=== PATIENT | female | born 1985 | race Caucasian/White ===

== ENCOUNTER 2017-11-14 09:54 | Emergency (ER) | payer MEDICAID ==
[~2017-11-14] VITALS: Ht 162.6 cm; Wt 90.4 kg
[2017-11-14 10:03] VITALS: BP 141/87
--- NOTE | 2017-11-14 10:15 | NUR ---
PT AMBULATES TO BED 7, REPORT GIVEN ZANE MATHEWS
--- NOTE | 2017-11-14 10:17 | NUR ---
PATIENT PRESENTS TO ED WITH COMPLAINTS OF DRY COUGH, SHARP HEAD PAINS, AND LEFT LOWER BACK PAIN. PATIENT REPORTS COUGH NAD HEAD PAIN STARTED RECENTLY; LEFT LOWER BACK PAIN STARTED AFTER THE OF HER SECOND CHILD. SHE STATES THAT THE PAIN MAKES IT DIFFICULT FOR HER TO GET FROM A SUPINE POSITION TO A SITTING POSITION. DENIES N/V/D; SKIN IS PINK/WARM/DRY; AAOX4 WITH EVEN AND STEADY GAIT; LUNGS CLEAR BL; HR EVEN AND REGULAR; PT DENIES ANY FEVER, CP, OR SOB; PATIENT STATES PAIN OF 7/10 AT THIS TIME; VSS; PATIENT POSITIONED FOR COMFORT; HOB ELEVATED; BEDRAILS UP X1; BED DOWN. ER MD MADE AWARE OF PT STATUS.
--- NOTE | 2017-11-14 10:30 | NUR ---
STREP A AND THROAT CULTURE OBTAINED. PATIENT TOLERATED PROCEDURE WELL.
[2017-11-14 10:57] VITALS: BP 141/87
--- NOTE | 2017-11-14 10:57 | NUR ---
Patient discharged with v/s stable. Written and verbal after care instructions given and explained. Patient alert, oriented and verbalized understanding of instructions. Ambulatory with steady gait. All questions addressed prior to discharge. ID band removed. Patient advised to follow up with PMD. Rx of MOTRIN, FLONASE, PROMETHAZINE given. Patient educated on indication of medication including possible reaction and side effects. Opportunity to ask questions provided and answered.
== END 2017-11-14 11:23 | disposition home or self-care (01) ==
LOC: MED 09:54
DX: J06.9 Acute upper respiratory infection, unspecified (principal); M62.838 Other muscle spasm
CPT/HCPCS: 87081; 99284

== ENCOUNTER 2018-03-23 05:40 | Emergency (ER) | payer MEDICAID ==
[~2018-03-23] VITALS: Ht 160 cm; Wt 85.3 kg
[2018-03-23 05:45] VITALS: BP 117/76
--- NOTE | 2018-03-23 05:45 | NUR ---
PT AMBULATED TO BED 7 WITH VSS.
--- NOTE | 2018-03-23 05:45 | NUR ---
PT PRESENTS TO ED WITH SOAR THROAT, PRODUCTIVE COUGH WITH GREEN SPUTUM THROUGHOUT DAY, GUERRERO, LEFT EAR ACHE, SINUS CONGESTION X2 DAYS. STATES 7/10 PAIN. BILAT UPPER LOBES EXPIRATORY WHEEZING. PT DENIES N/V/D, NO BODY ACHES. A&OX4. AFEBRILE. ER MD AWARE. POSITIONED IN BED FOR COMFORT. CONTINUE TO MONITOR.
[2018-03-23] MEDS ORDERED: KETOROLAC 30 MG/ML VIAL IM ONE (06:10)
[2018-03-23 06:31] VITALS: BP 117/76
--- NOTE | 2018-03-23 06:31 | NUR ---
Patient discharged with v/s stable. Written and verbal after care instructions given and explained. Patient alert, oriented and verbalized understanding of instructions. Ambulatory with steady gait. All questions addressed prior to discharge. ID band removed. Patient advised to follow up with PMD. Rx of Tylenol, Naprosyn, and Augmentin given. Patient educated on indication of medication including possible reaction and side effects. Opportunity to ask questions provided and answered.
== END 2018-03-23 06:31 | disposition home or self-care (01) ==
LOC: MED 05:40
DX: H66.92 Otitis media, unspecified, left ear (principal); J06.9 Acute upper respiratory infection, unspecified
CPT/HCPCS: 96372; 99283; J1885

== ENCOUNTER 2023-02-03 10:14 | Emergency (ER) | payer MEDICAID, OTHER ==
[~2023-02-03] VITALS: Ht 165.1 cm; Wt 90.7 kg
[2023-02-03 10:27] VITALS: BP 128/89; PULSE 68; RESP 18; TEMP 98.3; O2SAT 99
[2023-02-03 10:55] VITALS: BP 128/89; PULSE 68; RESP 18; TEMP 98.3
[2023-02-03 10:57] VITALS: O2SAT 99
[2023-02-03] MEDS ORDERED: IBUPROFEN 600 MG TAB PO ONE (11:05)
[2023-02-03 11:19] LABS: BASOPHILS % (AUTO) 0.1 % (0.0-2.0); EOSINOPHILS # (AUTO) 0.3 K/uL (0-0.4); EOSINOPHILS % (AUTO) 3.4 % (0.0-4.0); HEMATOCRIT 31.9 % (36-48); HEMOGLOBIN 10.2 g/dL (12.0-16.0); LYMPHOCYTES # (AUTO) 1.8 K/uL (2.5-16.5); MEAN CORPUSCULAR HEMOGLOBIN 23 pg (27-31); MEAN CORPUSCULAR HGB CONC 32 g/dL (33-37); MEAN CORPUSCULAR VOLUME 70.4 fL (80-94); MONOCYTES # (AUTO) 0.7 K/uL (0.8-1.0); MONOCYTES % (AUTO) 7.3 % (1.7-9.3); NEUTROPHILS # (AUTO) 6.5 K/uL (1.8-7.7); NEUTROPHILS % (AUTO) 70.2 % (42.2-75.2); PLATELET COUNT (AUTO) 334 K/uL (140-450); RED BLOOD CELL COUNT(AUTO) 4.52 MIL/uL (4.20-5.40); RED CELL DISTRIBUTION WIDTH 15.6 % (11.6-13.7); WHITE BLOOD COUNT (AUTO) 9.2 K/uL (4.8-10.8)
[2023-02-03 11:37] LABS: ALANINE AMINOTRANSFERASE 15 U/L (12-78); ALBUMIN 3.3 g/dL (3.4-5.0); ALKALINE PHOSPHATASE 91 U/L (50-136); ANION GAP 6.3 (8-16); ASPARTATE AMINOTRANSFERASE 12 U/L (15-37); CALCIUM 8.8 mg/dL (8.5-10.1); CARBON DIOXIDE 30.8 mmol/L (21-32); CHLORIDE 106 mmol/L (98-107); CREATININE 0.6 mg/dL (0.6-1.3); GFR ARICAN-AMERICAN 146 mL/min (>90); GFR NON ARICAN-AMERICAN 121 mL/min (>90); GLUCOSE 119 mg/dL (74-106); POTASSIUM 4.1 mmol/L (3.5-5.1); SODIUM SERUM 139 mmol/L (136-145); TOTAL BILIRUBIN 0.5 mg/dL (0.0-1.0); TOTAL PROTEIN, SERUM 6.7 g/dL (6.4-8.2); UREA NITROGEN, BLOOD 14 mg/dL (7-18)
== END 2023-02-03 12:37 | disposition home or self-care (01) ==
LOC: MED 10:14
DX: R07.89 Other chest pain (principal)
CPT/HCPCS: 36415; 71045; 80053; 84484; 85025; 93005; 99285; Q0092

== ENCOUNTER 2023-07-17 21:14 | Emergency (ER) | payer OTHER ==
[~2023-07-17] VITALS: Ht 160 cm; Wt 93.0 kg
[2023-07-17 22:07] VITALS: BP 142/82; PULSE 84; RESP 16; TEMP 97.2; O2SAT 99
[2023-07-17 23:01] LABS: FLU A ANTIGEN negative (NEGATIVE); FLU B ANTIGEN NEGATIVE (NEGATIVE)
[2023-07-17] MEDS: KETOROLAC 30 MG/ML VIAL IM ONE (23:19)
[2023-07-17 23:20] VITALS: O2SAT 99
== END 2023-07-17 23:43 | disposition home or self-care (01) ==
LOC: MED 21:14
DX: J02.8 Acute pharyngitis due to other specified organisms (principal); B97.89 Other viral agents as the cause of diseases classified elsewhere; Z20.822 Contact with and (suspected) exposure to COVID-19
CPT/HCPCS: 87426; 87804; 96372; 99283; J1885

== ENCOUNTER 2023-07-25 09:15 | Emergency (ER) | payer OTHER ==
[~2023-07-25] VITALS: Ht 160 cm; Wt 93.9 kg
[2023-07-25 09:28] VITALS: BP 125/83; PULSE 112; RESP 18; TEMP 98; O2SAT 98
[2023-07-25] MEDS ORDERED: [UNRECOGNIZED DRUG - CODE] MM (09:54)
[2023-07-25] MEDS ORDERED: NAPR-1704 PO (09:54)
[2023-07-25] MEDS ORDERED: IBUPROFEN 400 MG TAB PO ONE (09:55)
[2023-07-25] MEDS: KETOROLAC 30 MG/ML VIAL IM ONE (10:38)
[2023-07-25 10:57] VITALS: BP 125/83; PULSE 112; RESP 18; TEMP 98; O2SAT 98
[2023-07-25] MEDS ORDERED: PENI500T20 PO (13:28)
== END 2023-07-25 10:57 | disposition home or self-care (01) ==
LOC: MED 09:15
DX: J03.90 Acute tonsillitis, unspecified (principal); Z79.899 Other long term (current) drug therapy
CPT/HCPCS: 87081; 96372; 99283; J1885